=== PATIENT | male | born 1990 | race African-American/Black ===

== ENCOUNTER 2019-01-07 19:36 | Emergency (ER) | payer SELFPAY ==
[2019-01-07 19:43] VITALS: TEMP 98.9; BMI 23.7
[2019-01-07] MEDS ORDERED: METOCLOPRAMIDE HCL INJECTION 10 MG/2 ML VIAL IVPB ONE (19:43)
[2019-01-07] MEDS ORDERED: SODIUM CHLORIDE 0.9% 500 ML INFUS.BAG IV ONE (19:43)
--- NOTE | 2019-01-07 19:44 | PDOC ---
Rapid Medical Evaluation Chief Complaint: Headache Time Seen by Provider: 01/07/19 19:39 Medical Evaluation: 01/07/19 19:40 28 year old male c/o subjective fever,headache, dizziness and vomiting. pATIENT REPORTS THAT he took a herbal cleansing pill 3 days ago woke up "feeling sick" Patient alert ox3. A: headache P: labs IVF reglan patient to the ER for further management of care. Discharge Disposition - Diagnosis Headache Qualifiers: Headache type: unspecified Headache chronicity pattern: acute headache Intractability: not intractable Qualified Code(s): R51 - Headache - Referrals - Patient Instructions - Post Discharge Activity
[2019-01-07] MEDS ORDERED: METOCLOPRAMIDE HCL INJECTION 10 MG/2 ML VIAL ONE (20:08)
--- NOTE | 2019-01-07 20:28 | PDOC ---
History of Present Illness - General Chief Complaint: Headache Stated Complaint: headache/vomiting Time Seen by Provider: 01/07/19 19:39 History Source: Patient Exam Limitations: No Limitations - History of Present Illness Initial Comments: 01/07/19 20:20 HISTORY OF PRESENT ILLNESS: 28-year-old male denies medical history presents emergency department for evaluation of frontal headache dry cough for the past 3 days. Patient reports symptoms started 3 days ago after taking an herbal cleanse from [facility]. Patient reports works out a lot [employer] clear creatine from his system. Patient reports he went to bed and when he woke up and mild frontal headache rated 4/10. Patient went to sleep overnight when he woke up in the morning pain 8/10 located in the frontal part of his head. Denies any blurry vision. Patient reports taking [id number]-jukvvge medications such as Excedrin, Tylenol and Advil with minimal relief of symptoms. Patient reports today on day 3 of his headache he had 2 episodes of nonbilious nonbloody vomiting this morning but has been able to tolerate food since then. Patient reports he developed a dry cough which started today which exacerbates the headache. No recent travel or sick contacts. PAST MEDICAL HISTORY: Denies past medical history SURGICAL HISTORY: Denies ALLERGIES: No known drug allergies REVIEW OF SYSTEMS General/Constitutional: Denies fever or chills. Denies weakness, weight change. HEENT: Denies change in vision. Denies ear pain or discharge. Denies sore throat. Cardiovascular: Denies chest pain or shortness of breath. Respiratory: see HPI Gastrointestinal: Denies nausea, vomiting, diarrhea or constipation. Denies rectal bleeding. Genitourinary: Denies dysuria, frequency, or change in urination. Musculoskeletal: Denies joint or muscle swelling or pain. Denies neck or back pain. Skin and breasts: Denies rash or easy bruising. Neurologic: see HPI Psychiatric: Denies depression or anxiety. Endocrine: Denies increased thirst. Denies abnormal weight change. Hematologic/Lymphatic: Denies anemia, easy bleeding, or history of blood clots. Allergic/Immunologic: Denies hives or skin allergy. Denies latex allergy. PHYSICAL EXAM General Appearance: Well-appearing, appropriately dressed. No apparent distress , no intoxication. HEENT: EOMI, PERRLA, normal ENT inspection, normal voice, TMs normal. No conjunctival pallor. No photophobia, scleral icterus. OP mildly erythematous with cobblestoning in posterior aspect. No sinus tenderness. Neck: Supple. Trachea midline. No tenderness, rigidity, carotid bruit, stridor , lymphadenopathy, meningismus or thyromegaly. Respiratory/Chest: Lungs CTAB. No shortness of breath, chest tenderness, respiratory distress, accessory muscle use. No crackles, rales, rhonchi, stridor , wheezing, dullness Cardiovascular: RRR. S1, S2. No JVD, murmur, bradycardia, tachycardia. Vascular Pulses: Dorsalis-Pedis (R): 2+, Dorsalis-Pedis (L): 2+ Gastrointestinal/Abdominal: Normal bowel sounds. Abdomen soft, non-distended. No tenderness or rebound tenderness. No organomegaly, pulsatile mass, guarding, hernia, hepatomegaly, splenomegaly. Lymphatic: No adenopathy, tenderness. Musculoskeletal/Extremities: Normal inspection. FROM of all extremities, normal capillary refill. Pelvis Stable. No CVA tenderness. No tenderness to extremities, pedal edema, swelling, erythema or deformity. Integumentary: Appropriate color, dry, warm. No cyanosis, erythema, jaundice or rash Neurologic: donor processor II-XII intact. Fully oriented, alert. Appropriate mood/affect. Motor strength 5/5. No appreciable EOM palsy, facial droop or sensory deficit. Past History - Past Medical History Allergies/Adverse Reactions: Allergies Allergy/AdvReac Type Severity Reaction Status Date / Time No Known Allergies Allergy Verified 01/07/19 19:43 Home Medications: Ambulatory Orders Butalb/Acetaminophen/Caffeine [Fioricet 50-300-40 mg Capsule] 1 each PO Q6H PRN #20 capsule 01/08/19 Metoclopramide HCl [Reglan -] 10 mg PO Q8H PRN #21 tablet 01/08/19 COPD: No - Immunization History Immunization Up to Date: Yes - Psycho Social/Smoking Cessation Hx Smoking History: Never smoked Hx Alcohol Use: No Drug/Substance Use Hx: No *Physical Exam - Vital Signs Last Vital Signs Temp Pulse Resp BP Pulse Ox 98.9 F 78 18 116/62 97 01/07/19 19:39 01/07/19 19:39 01/07/19 19:39 01/07/19 19:39 01/07/19 19:39 ED Treatment Course - LABORATORY CBC & Chemistry Diagram: 01/07/19 20:15 01/07/19 20:15 Medical Decision Making - Medical Decision Making 01/07/19 20:28 A/P: 28-year-old male with frontal headache for 3 days now with dry cough for 1 day Neurologic exam is within normal limits Most likely due to nasopharyngitis. Labs per RME Normal saline 1 L IV bolus Reglan 10 mg IV Reassess 01/07/19 22:27 Patient reports resolution of headache. Laboratory testing is unremarkable. I discussed the physical exam findings, ancillary test results and final diagnoses with the patient. I answered all of the patient's questions. The patient was satisfied with the care received and felt comfortable with the discharge plan and treatment plan. The patient will call their primary care physician within 24 hours to arrange follow-up and will return to the Emergency Department with any new, persistent or worsening symptoms. Portions of this note have been documented using voice recognition software. As a result, errors may occur in the manager gift process. Effort has been made to correct all grammatical and manager gift error, but some may have been missed. Discharge - Discharge Information Problems reviewed: Yes Clinical Impression/Diagnosis: Headache Qualifiers: Headache type: unspecified Headache chronicity pattern: acute headache Intractability: not intractable Qualified Code(s): R51 - Headache Condition: Fair Disposition: HOME - Admission No - Follow up/Referral - Patient Discharge Instructions Additional Instructions: Take Tylenol or Motrin as needed for headaches. Keep a diary of all food to eat and activities performed prior to headaches starting. Make an appointment with your primary doctor for reevaluation within the next week. Return to emergency department for worsening headache, blurry vision, dizziness , nausea, vomiting or any other concerns. Thank you very much for for choosing us to provide emergent health care needs. - Post Discharge Activity
[2019-01-07 20:37] LABS: BASO % 0.6 % (0-2.0); EOS % 0.3 % (0-4.5); HEMATOCRIT 41.4 % (35.4-49); HEMOGLOBIN 13.8 GM/dL (11.7-16.9); LYMPH % 16.8 % (8-40); MCH 30.9 pg (25.7-33.7); MCHC 33.3 g/dl (32.0-35.9); MEAN CELL VOLUME 92.9 fl (80-96); MEAN PLT VOLUME 8.4 fl (7.5-11.1); MONO % 6.1 % (3.8-10.2); NEUT % 76.2 % (42.8-82.8); PLATELET COUNT 227 K/MM3 (134-434); RBC 4.46 M/mm3 (4.00-5.60); RDW 13.3 % (11.9-15.9); WHITE BLOOD COUNT 8.1 K/mm3 (4.0-10.0)
[2019-01-07 21:08] LABS: ALBUMIN 4.1 g/dl (3.4-5.0); BILIRUBIN,TOTAL 0.6 mg/dL (0.2-1); BLOOD UREA NITROGEN 11.6 mg/dL (7-18); CALCIUM 9.3 mg/dL (8.5-10.1); CREATININE 1.3 mg/dL (0.55-1.3); POTASSIUM 3.9 mmol/L (3.5-5.1); TOT PROT 7.3 g/dl (6.4-8.2)
[2019-01-07] MEDS ORDERED: KETOROLAC TROMETHAMINE 30 MG/1 ML VIAL IVPUSH ONE (21:09)
[2019-01-07] MEDS ORDERED: KETOROLAC TROMETHAMINE 30 MG/1 ML VIAL ONE (21:29)
--- NOTE | 2019-01-07 22:39 | PDOC ---
*Physical Exam - Vital Signs Last Vital Signs Temp Pulse Resp BP Pulse Ox 98.9 F 78 18 116/62 97 01/07/19 19:39 01/07/19 19:39 01/07/19 19:39 01/07/19 19:39 01/07/19 19:39 ED Treatment Course - LABORATORY CBC & Chemistry Diagram: 01/07/19 20:15 01/07/19 20:15 - ADDITIONAL ORDERS Additional order review: Laboratory Results 01/07/19 20:15 Sodium 136 Potassium 3.9 Chloride 102 Carbon Dioxide 26 Anion Gap 7 L BUN 11.6 Creatinine 1.3 Est GFR (CKD-EPI)AfAm 86.67 Est GFR (CKD-EPI)NonAf 74.78 Random Glucose 115 H Calcium 9.3 Total Bilirubin 0.6 AST 18 ALT 23 Alkaline Phosphatase 56 Total Protein 7.3 Albumin 4.1 01/07/19 20:15 RBC 4.46 MCV 92.9 MCHC 33.3 RDW 13.3 MPV 8.4 Neutrophils % 76.2 Lymphocytes % 16.8 Monocytes % 6.1 Eosinophils % 0.3 Basophils % 0.6 - Medications Given in the ED: ED Medications Discontinued Medications Generic Name Dose Route Start Last Admin Trade Name Freq PRN Reason Stop Dose Admin Diphenhydramine HCl 25 mg 01/07/19 21:09 01/07/19 21:47 Benadryl Injection - IVPUSH 01/07/19 21:10 25 mg ONCE ONE Administration Ketorolac Tromethamine 30 mg 01/07/19 21:09 01/07/19 21:47 Toradol Injection - IVPUSH 01/07/19 21:10 30 mg ONCE ONE Administration Metoclopramide HCl 10 mg 01/07/19 19:43 01/07/19 20:28 Reglan Injection - IVPB 01/07/19 19:44 10 mg ONCE ONE Administration Sodium Chloride 1,000 ml 01/07/19 19:43 01/07/19 20:28 Normal Saline - IV 01/07/19 19:44 1,000 ml ONCE ONE Administration Medical Decision Making - Medical Decision Making 01/07/19 22:38 Case reviewed, agree with assessment and plan Discharge - Discharge Information Problems reviewed: Yes Clinical Impression/Diagnosis: Headache Qualifiers: Headache type: unspecified Headache chronicity pattern: acute headache Intractability: not intractable Qualified Code(s): R51 - Headache Condition: Fair Disposition: HOME - Follow up/Referral - Patient Discharge Instructions Additional Instructions: Take Tylenol or Motrin as needed for headaches. Keep a diary of all food to eat and activities performed prior to headaches starting. Make an appointment with your primary doctor for reevaluation within the next week. Return to emergency department for worsening headache, blurry vision, dizziness , nausea, vomiting or any other concerns. Thank you very much for for choosing us to provide emergent health care needs. - Post Discharge Activity
[2019-01-07 22:47] VITALS: BP 117/64; PULSE 72
== END 2019-01-07 22:45 | disposition home or self-care (01) ==
LOC: JER 19:36
PROC: 3E0337Z Introduction of Electrolytic and Water Balance Substance into Peripheral Vein, Percutaneous Approach (ICD-10-PCS; principal; 2019-01-07)
PROC: 3E0333Z Introduction of Anti-inflammatory into Peripheral Vein, Percutaneous Approach (ICD-10-PCS; 2019-01-07)
PROC: 3E033GC Introduction of Other Therapeutic Substance into Peripheral Vein, Percutaneous Approach (ICD-10-PCS; 2019-01-07)
PROC: 3E033GC Introduction of Other Therapeutic Substance into Peripheral Vein, Percutaneous Approach (ICD-10-PCS; 2019-01-07)
DX: R51 Headache (principal)
CPT/HCPCS: 36415; 80053; 85025; 99283-25

== ENCOUNTER 2019-01-08 08:26 | Emergency (ER) | payer SELFPAY ==
[2019-01-08 08:33] VITALS: BP 117/66; PULSE 68; TEMP 98.3; BMI 23.7
[2019-01-08] MEDS ORDERED: KETOROLAC TROMETHAMINE 30 MG/1 ML VIAL IVPUSH ONE (09:25)
[2019-01-08] MEDS ORDERED: METOCLOPRAMIDE HCL INJECTION 10 MG/2 ML VIAL IVPUSH ONE (09:25)
[2019-01-08] MEDS ORDERED: METOCLOPRAMIDE HCL INJECTION 10 MG/2 ML VIAL ONE (09:34)
[2019-01-08] MEDS ORDERED: KETOROLAC TROMETHAMINE 30 MG/1 ML VIAL ONE (09:34)
[2019-01-08] MEDS ORDERED: SODIUM CHLORIDE 1,000 ML IV STA (09:43)
--- NOTE | 2019-01-08 09:49 | PDOC ---
History of Present Illness - General Chief Complaint: Cold Symptoms Stated Complaint: DRY COUGH W/MARTIN Time Seen by Provider: 01/08/19 09:14 History Source: Patient Exam Limitations: Clinical Condition - History of Present Illness Initial Comments: 01/08/19 09:45 Patient with no significant past medical history present with complaint of worsening headaches for the past 3 days upon wake after taking supplementary vitamins from [facility] 5 days ago. Patient was seen yesterday for same symptoms of headache, nausea and photophobia which improved with Reglan IV fluids and was discharged home per patient reports symptoms started again this morning. Patient reported until headaches with blurred vision when he standup from sitting position with spinning sensation and denies vomiting, cough, fever, neck pain, chest pain, shortness of breath. Denies any other symptoms. Denies history of migraines or vertigo Is this a multiple visit Asthma Patient?: No Timing/Duration: other (3 days) Past History - Past Medical History Allergies/Adverse Reactions: Allergies Allergy/AdvReac Type Severity Reaction Status Date / Time No Known Allergies Allergy Verified 01/07/19 19:43 Home Medications: Ambulatory Orders Butalb/Acetaminophen/Caffeine [Fioricet 50-300-40 mg Capsule] 1 each PO Q6H PRN #20 capsule 01/08/19 Metoclopramide HCl [Reglan -] 10 mg PO Q8H PRN #21 tablet 01/08/19 COPD: No - Immunization History Immunization Up to Date: Yes - Psycho Social/Smoking Cessation Hx Smoking History: Never smoked Have you smoked in the past 12 months: No Information on smoking cessation initiated: No Hx Alcohol Use: No Drug/Substance Use Hx: No Review of Systems - Review of Systems Able to Perform ROS?: Yes Is the patient limited Kinyarwanda proficient: No Constitutional: No: Chills, Fever, Malaise HEENTM: Yes: Symptoms Reported, See HPI, Blurred Vision, Recent change in vision. No: Eye Pain, Tearing, Double Vision, Cataracts, Ear Pain, Ocular Prothesis, Ear Discharge, Nose Pain, Nose Congestion, Tinnitus, Nose Bleeding, Hearing Loss, Throat Pain, Throat Swelling, Mouth Pain, Dental Problems, Difficulty Swallowing, Mouth Swelling, Other Respiratory: Yes: Symptoms reported, See HPI, Cough (intermittent). No: Orthopnea, Shortness of Breath, SOB with Exertion, SOB at Rest, Stridor, Wheezing, Productive cough, Hemoptysis, Other Cardiac (ROS): No: Symptoms Reported, See HPI, Chest Pain, Edema, Irregular Heart Rate, Lightheadedness, Palpitations, Syncope, Chest Tightness, Other ABD/GI: Yes: Symptoms Reported, See HPI, Nausea. No: Abdominal Distended, Abd. Pain w/ defecation, Blood Streaked Bowels, Constipated, Diarrhea, Difficulty Swallowing, Poor Appetite, Poor Fluid Intake, Rectal Bleeding, Vomiting, Abdominal cramping Musculoskeletal: No: Symptoms Reported Integumentary: No: Symptoms Reported Neurological: Yes: Symptoms reported, See HPI, Headache, Dizziness. No: Numbness, Paresthesia, Pre-Existing Deficit, Seizure, Tremors, Weakness, Unsteady Gait, Ataxia All Other Systems: Reviewed and Negative *Physical Exam - Vital Signs Last Vital Signs Temp Pulse Resp BP Pulse Ox 98.3 F 68 18 117/66 98 01/08/19 08:30 01/08/19 08:30 01/08/19 08:30 01/08/19 08:30 01/08/19 08:30 - Physical Exam Comments: 01/08/19 09:50 GENERAL: Well developed, well nourished. Awake and alert. No acute distress. HEENT: Normocephalic, atraumatic. PERRLA, EOMI. No conjunctival pallor. Sclera are non- icteric. Moist mucous membranes. Oropharynx is clear. NECK: Supple. Full ROM. No JVD. No thyromegaly. No lymphadenopathy. CARDIOVASCULAR: Regular rate and rhythm. No murmurs, rubs, or gallops. Distal pulses are 2+ and symmetric. PULMONARY: No evidence of respiratory distress. Lungs clear to auscultation bilaterally. No wheezing, rales or rhonchi. ABDOMINAL: Soft. Non-tender. Non-distended. No rebound or guarding. No organomegaly. Normoactive bowel sounds. MUSCULOSKELETAL Normal range of motion at all joints. EXTREMITIES: No cyanosis. No clubbing. SKIN: Warm and dry. Normal capillary refill. No rashes. NEUROLOGICAL: Alert, awake, appropriate. Cranial nerves 2-12 intact. No motor deficits in the in face, upper extremities and lower extremities. Normoreflexic in the upper and lower extremities. Normal speech. Toes are down-going bilaterally. Gait is normal without ataxia. PSYCHIATRIC: Cooperative. Good eye contact. Appropriate mood and affect. General Appearance: Yes: Nourished, Appropriately Dressed. No: Apparent Distress ED Treatment Course - RADIOLOGY Radiology Studies Ordered: Category Date Time Status HEAD CT WITH CONTRAST [CT] Stat CT Scan 01/08/19 09:32 Ordered - Medications Given in the ED: ED Medications Discontinued Medications Generic Name Dose Route Start Last Admin Trade Name Nupur PRN Reason Stop Dose Admin Ketorolac Tromethamine 30 mg 01/08/19 09:25 01/08/19 09:43 Toradol Injection - IVPUSH 01/08/19 09:26 30 mg ONCE ONE Administration Metoclopramide HCl 10 mg 01/08/19 09:25 01/08/19 09:43 Reglan Injection - IVPUSH 01/08/19 09:26 10 mg ONCE ONE Administration Medical Decision Making - Medical Decision Making 01/08/19 09:48 Patient with no significant past medical history present with complaint of worsening headaches for the past 3 days upon wake after taking supplementary vitamins from [facility] 5 days ago. Patient was seen yesterday for same symptoms of headache, nausea and photophobia which improved with Reglan IV fluids and was discharged home per patient reports symptoms started again this morning. Patient reported until headaches with blurred vision when he standup from sitting position with spinning sensation and denies vomiting, cough, fever, neck pain, chest pain, shortness of breath. Denies any other symptoms. Denies history of migraines or vertigo Normal neurological exam with patient walking with normal gait. labwork done yesterday unremarkable Symptoms likely migraine with aura versus vertigo. Reglan 10 mg IV, Toradol 30 mg IV ordered for headache. IV fluid normal saline 1 L ordered for hydration. Head CT without contrast ordered to rule out acute head pathology. Reassess after meds and imaging 01/08/19 10:22 Toradol 30mg IV given almost an hour ago but pt report still having severe MARTIN. Tylenol 1g IV ordered 01/08/19 12:14 Patient report improvement of MARTIN post IV Tylenol. bedside ultrasound of the eye done by Dr. Navarro shows optic nerve measurement of 0.5cm which is normal. Patient symptoms likely migraine with aura and stable for discharge on reglan PO and fioricet with neurology f/u. Plan discussed with patient and patient agrees with plan Discharge - Discharge Information Problems reviewed: Yes Clinical Impression/Diagnosis: Migraine headache with aura Qualifiers: Status migrainosus presence: without status migrainosus Intractability: not intractable Qualified Code(s): G43.109 - Migraine with aura, not intractable, without status migrainosus Condition: Stable Disposition: HOME - Admission No - Additional Discharge Information Prescriptions: Butalb/Acetaminophen/Caffeine [Fioricet 50-300-40 mg Capsule] 1 each PO Q6H PRN #20 capsule PRN Reason: headache Metoclopramide HCl [Reglan -] 10 mg PO Q8H PRN #21 tablet PRN Reason: migraine - Follow up/Referral Referrals: Piedad Story MD [Staff Physician] - - Patient Discharge Instructions Patient Printed Discharge Instructions: DI for Migraine Additional Instructions: Your head Cat scan is normal. your eye ultrasound is normal and shows no increased pressure in head. Your symptoms is likely from migraine. Take prescribed medication as needed for headaches. Follow-up with referred neurologist for migraine headaches - Post Discharge Activity
[2019-01-08] MEDS ORDERED: ACETAMINOPHEN 1000 MG/100 ML VIAL (NON FORMULARY) IVPB ONE (10:22)
== END 2019-01-08 12:48 | disposition home or self-care (01) ==
LOC: JER 08:26
PROC: 3E0337Z Introduction of Electrolytic and Water Balance Substance into Peripheral Vein, Percutaneous Approach (ICD-10-PCS; principal; 2019-01-08)
PROC: 3E033NZ Introduction of Analgesics, Hypnotics, Sedatives into Peripheral Vein, Percutaneous Approach (ICD-10-PCS; 2019-01-08)
PROC: 3E0333Z Introduction of Anti-inflammatory into Peripheral Vein, Percutaneous Approach (ICD-10-PCS; 2019-01-08)
PROC: 3E033GC Introduction of Other Therapeutic Substance into Peripheral Vein, Percutaneous Approach (ICD-10-PCS; 2019-01-08)
DX: G43.109 Migraine with aura, not intractable, without status migrainosus (principal)
CPT/HCPCS: 70450-TC; 99282-25; J0131; J7030

== ENCOUNTER 2021-02-18 20:29 | Emergency (ER) | payer OTHER ==
[2021-02-18 20:41] VITALS: BP 100/60; PULSE 60; TEMP 98.3; BMI 24.9
[2021-02-18] MEDS ORDERED: LIDOCAINE PATCH REMOVAL MC SCH (22:00)
[2021-02-18] MEDS ORDERED: KETOROLAC TROMETHAMINE 30 MG/1 ML VIAL IM ONE (23:43)
[2021-02-18] MEDS ORDERED: LIDOCAINE 5% TOPICAL PATCH TP ONE (23:44)
[2021-02-18] MEDS ORDERED: LIDOCAINE 5% TOPICAL PATCH ONE (23:54)
[2021-02-18] MEDS ORDERED: KETOROLAC TROMETHAMINE 30 MG/1 ML VIAL ONE (23:55)
[2021-02-19] MEDS ORDERED: METHOCARBAMOL 500 MG TABLET PO ONE (01:05)
[2021-02-19 01:22] LABS: PH,URINE 5.5 (5.0-8.0); URINE APPEARANCE CLEAR; URINE BILIRUBIN NEGATIVE (NEGATIVE); URINE COLOR YELLOW; URINE GLUCOSE (UA) NEGATIVE (NEGATIVE); URINE KETONE TRACE (NEGATIVE); URINE LEUK ESTERASE NEGATIVE (NEGATIVE); URINE NITRITE NEGATIVE (NEGATIVE); URINE PROTEIN NEGATIVE (NEGATIVE)
[2021-02-19] MEDS ORDERED: METHOCARBAMOL 500 MG TABLET ONE (01:30)
[2021-02-19] MEDS ORDERED: ACETAMINOPHEN 325 MG TABLET (FP) PO ONE (01:33)
== END 2021-02-19 02:37 | disposition left against medical advice (07) ==
LOC: JER 20:29 → JERFT 20:29 → JER 02-19 02:37
PROC: 3E0233Z Introduction of Anti-inflammatory into Muscle, Percutaneous Approach (ICD-10-PCS; principal; 2021-02-18)
DX: M62.830 Muscle spasm of back (principal)
CPT/HCPCS: 81003; 99284-25

== ENCOUNTER 2021-02-20 08:20 | Emergency (ER) | payer OTHER ==
[2021-02-20 08:38] VITALS: BP 115/76; PULSE 77; TEMP 97.2; BMI 23.7
[2021-02-20] MEDS ORDERED: KETOROLAC TROMETHAMINE 60 MG/2 ML VIAL IM ONE (09:50)
[2021-02-20] MEDS ORDERED: ACETAMINOPHEN 500 MG TABLET (FP) PO ONE (09:50)
[2021-02-20] MEDS ORDERED: KETOROLAC TROMETHAMINE 60 MG/2 ML VIAL ONE (10:01)
[2021-02-20] MEDS ORDERED: ACETAMINOPHEN 500 MG TABLET (FP) ONE (10:01)
== END 2021-02-20 10:33 | disposition home or self-care (01) ==
LOC: JER 08:20
PROC: 3E0233Z Introduction of Anti-inflammatory into Muscle, Percutaneous Approach (ICD-10-PCS; principal; 2021-02-20)
DX: M54.50 Low back pain, unspecified (principal)
CPT/HCPCS: 99283-25

== ENCOUNTER 2021-08-10 19:17 | Emergency (ER) | payer OTHER ==
[2021-08-10 19:24] VITALS: BP 104/63; PULSE 64; TEMP 98; BMI 22.4
== END 2021-08-10 21:28 | disposition home or self-care (01) ==
LOC: JER 19:17 → JERFT 19:17
DX: F41.9 Anxiety disorder, unspecified (principal)
CPT/HCPCS: 93005; 93010; 99283-25

== ENCOUNTER 2022-07-08 21:16 | Emergency (ER) | payer OTHER ==
[2022-07-08 21:26] VITALS: BP 117/75; PULSE 67; RESP 20; TEMP 98.2; BMI 21.7
[2022-07-08] MEDS ORDERED: SODIUM CHLORIDE 0.9% 500 ML INFUS.BAG IV ONE (22:23)
[2022-07-08] MEDS ORDERED: FAMOTIDINE 20 MG/50 ML IVPB 20 MG/50 ML MG IVPB ONE ×2 (22:23→22:27)
[2022-07-08] MEDS ORDERED: ACETAMINOPHEN 1000 MG/100 ML BAG IVPB ONE (22:23)
[2022-07-08] MEDS ORDERED: ONDANSETRON 4 MG/2 ML VIAL IVPUSH ONE (22:23)
[2022-07-08] MEDS ORDERED: ONDANSETRON 4 MG/2 ML VIAL ONE (22:27)
[2022-07-08] MEDS ORDERED: ACETAMINOPHEN INJECTION 100 ML IVPB ONE (22:27)
[2022-07-08 22:57] LABS: BASO % 0.6 % (0-2.0); EOS % 0.8 % (0-4.5); HEMATOCRIT 42.1 % (35.4-49); HEMOGLOBIN 14.6 GM/dL (11.7-16.9); LYMPH % 23.8 % (8-40); MCH 31.3 pg (25.7-33.7); MCHC 34.8 g/dl (32.0-35.9); MEAN CELL VOLUME 89.9 fl (80-96); MEAN PLT VOLUME 7.5 fl (7.5-11.1); MONO % 10.5 % (3.8-10.2); NEUT % 64.3 % (42.8-82.8); PLATELET COUNT 355 10^3/uL (134-434); RBC 4.68 M/mm3 (4.00-5.60)
[2022-07-08 23:19] LABS: CALCIUM 9.2 mg/dL (8.5-10.1)
[2022-07-08 23:20] LABS: ALBUMIN 3.9 g/dl (3.4-5.0); BLOOD UREA NITROGEN 15.7 mg/dL (7-18); MAGNESIUM 2.4 mg/dL (1.8-2.4)
[2022-07-08 23:23] LABS: CREATININE 1.1 mg/dL (0.55-1.3)
[2022-07-08 23:25] LABS: BILIRUBIN,TOTAL 0.7 mg/dL (0.2-1)
== END 2022-07-09 00:48 | disposition home or self-care (01) ==
LOC: JER 21:16
PROC: 3E033GC Introduction of Other Therapeutic Substance into Peripheral Vein, Percutaneous Approach (ICD-10-PCS; principal; 2022-07-08)
PROC: 3E033GC Introduction of Other Therapeutic Substance into Peripheral Vein, Percutaneous Approach (ICD-10-PCS; 2022-07-08)
PROC: 3E033GC Introduction of Other Therapeutic Substance into Peripheral Vein, Percutaneous Approach (ICD-10-PCS; 2022-07-08)
DX: R11.2 Nausea with vomiting, unspecified (principal); R19.7 Diarrhea, unspecified; R10.9 Unspecified abdominal pain; Z20.822 Contact with and (suspected) exposure to COVID-19
CPT/HCPCS: 0241U-QW; 36415; 80053; 83690; 83735; 85025; 99284-25